=== PATIENT | male | born 1990 | race American Indian/Alaskan Native ===

== ENCOUNTER 2021-12-30 17:27 | Emergency (ER) | payer SELFPAY ==
[2021-12-30 18:52] VITALS: BP 128/78
== END 2021-12-31 15:13 | disposition left against medical advice (07) ==
LOC: ED 17:27
DX: H53.8 Other visual disturbances (principal); R55 Syncope and collapse; Z53.21 Procedure and treatment not carried out due to patient leaving prior to being seen by health care provider
CPT/HCPCS: 82962